=== PATIENT | female | born 1935 | race Caucasian/White ===

== ENCOUNTER 2016-12-27 13:30 | Outpatient (CLI) | payer MEDICARE, BC ==
[2016-12-27 14:20] LABS: Hemoglobin A1c 6.7 % (4.0-6.0)
[2016-12-27 14:27] LABS: Anion Gap 17 mmol/L (10-20); BUN (Urea Nitrogen) 9 mg/dL (9.8-20.1); Calc. Creatinine Clearance 0 mL/min (70-130); Calcium 8.8 mg/dL (7.8-10.44); Carbon Dioxide 26 mmol/L (23-31); Chloride 102 mmol/L (98-107); Estimated GFR-MDRD 72
== END 2016-12-27 13:31 | disposition home or self-care (01) ==
LOC: NAVSJIPCSP 13:30 → NAV LAB 13:31
PROVIDERS: ATTEND Internal Medicine
DX: E11.9 Type 2 diabetes mellitus without complications (principal); I10 Essential (primary) hypertension; E03.9 Hypothyroidism, unspecified
CPT/HCPCS: 80048; 83036

== ENCOUNTER 2018-04-08 13:04 | Emergency (ER) | payer MEDICARE, BC ==
--- NOTE | 2018-04-08 14:17 | RAD ---
CHEST 2 VIEWS: Date: 04/08/18 HISTORY: Sore throat and cough. FINDINGS: Heart size within normal limits. There are atherosclerotic changes of the aorta. The lungs are clear of infiltrates. There are arthritic changes of the spine. IMPRESSION: No active intrathoracic disease. POS: [facility]
== END 2018-04-08 14:38 | disposition home or self-care (01) ==
LOC: NAV ERS 13:04
DX: J20.9 Acute bronchitis, unspecified (principal); E11.9 Type 2 diabetes mellitus without complications; E03.9 Hypothyroidism, unspecified; E78.5 Hyperlipidemia, unspecified; I10 Essential (primary) hypertension; Z79.899 Other long term (current) drug therapy
CPT/HCPCS: 71046